=== PATIENT | male | born 1935 | race Caucasian/White ===

== ENCOUNTER 2025-03-21 06:33 | Outpatient (REF) | payer MEDICARE, SELFPAY ==
--- OUTSIDE RECORDS SUMMARY | 2025-03-21 06:42 | XMS_ITS | Clinical Summary ---
Author Organization [email or web address] Address [address] [facility] 7t [place] [address] Care Team Providers Care Solar Field Installation Crew Member Name Role Phone Unavailable Primary Care Provider Unavailabl e Immunizations Immunization Administration Dates Next Due Pfizer Covid-19 Vaccine 12+ 07/13/2023 Pfizer Covid-19 Vaccine 12+ Bivalent 03/08/2023 Social History Tobacco Use Types Packs/Day Years Used Date Smoking Tobacco: Never Assessed Sex and Gender Information Value Date Recorded Sex Assigned at Male 03/08/2023 12:03 PM EDT Legal Sex Male 12:02 PM EDT Gender Identity Male 03/08/2023 12:03 PM EDT Sexual Orientation Straight 03/08/2023 12 :03 PM EDT Plan of Treatment Health Maintenance Due Date Last Done Comments Depression Screening 1937 Lipid Panel 1937 SDOH Screening 1937 Alcohol/Substance Use Screening 1949 Tobacco Screening 1949 Zoster Vaccines (1 of 2) 1987 RSV Patients and Patients Aged 60 years or older (1 - 1-dose 75+ series) 2012 COVID-19 Vaccine ( season) 2024 07/13/2023, 03/08/2023, 09/04/2022, Additional history exists Influenza Vaccine (Season Ended) 2025 07/07/2023, 07/03/2022, 06/28/2021, Additional history exists DTaP/Tdap/Td Vaccines (3 - Td or Tdap) 07/06/2033 07/06/2023, 05/17/2012 Pneumococcal Vaccine: 50+ Years Completed 12/23/2015, 05/17/2012 HIB Vaccines Aged Out No longer eligi ble based on patient's age to complete this topic HPV Vaccines Aged Out No longer eligi ble based on patient's age to complete this topic Hepatitis A Vaccines Aged Out No long er eligible based on patient's age to complete this topic Hepatitis B Vaccines Aged Out No long er eligible based on patient's age to complete this topic IPV Vaccines Aged Out No longer eligi ble based on patient's age to complete this topic Meningococcal B Vaccine Aged Out No l onger eligible based on patient's age to complete this topic Meningococcal Vaccine Aged Out No lyn chidi eligible based on patient's age to complete this topic RSV under 20 months Aged Out No longe r eligible based on patient's age to complete this topic Rotavirus Vaccines Aged Out No longer eligible based on patient's age to complete this topic [facility]
[2025-03-21 06:48] LABS: MANUAL DIFF FLAG NO
[2025-03-21 07:15] LABS: Basophils Percent Auto 0.5 % (0-2); Eosinophils Absolute Auto 0.2 X10*3/uL (0.0-0.4); Eosinophils Percent Auto 2.3 % (0-4); Hematocrit 34.2 % (42.0-52.0); Hemoglobin 11.4 g/dl (14.0-18.0); Imm Gran Abs Auto 0.02 X10*3/uL (0.00-0.03); Imm Gran Pct Auto 0.3 % (0.0-0.4); Lymphocytes Absolute Auto 2.7 X10*3/uL (1.2-4.9); Lymphocytes Percent Auto 41.6 % (20-40); Mean Corpuscular HGB Conc 33.3 g/dl (31.0-36.0); Mean Corpuscular Hemoglobin 32.1 pg (27.0-33.0); Mean Corpuscular Volume 96.3 fL (80.0-98.0); Mean Platelet Volume 9.9 fL (9.4-12.4); Monocytes Absolute Auto 0.7 X10*3/uL (0.1-1.2); Monocytes Percent Auto 10.7 % (2-11); Neutrophils Absolute Auto 2.9 x10*3/uL (2.0-8.3); Neutrophils Percent Auto 44.6 % (45-73); Platelet Count 184 X10*3/uL (160-400); Red Blood Count 3.55 X10*6/uL (4.60-5.80); Red Cell Distribution Width 15.1 % (11.0-16.0); White Blood Count 6.4 X10*3/uL (4.8-10.8)
[2025-03-21 07:37] LABS: Alanine Aminotransferase 14 U/L (0-40); Albumin Level 3.6 g/dL (3.5-5.0); Alkaline Phosphatase 75 U/L (39-117); Anion Gap 12 (12-20); Aspartate Amino Transferase 21 U/L (5-37); Bilirubin Total 0.6 mg/dL (0.0-1.0); Blood Urea Nitrogen 32 mg/dL (9-16); Calcium 9.1 mg/dL (8.4-10.2); Carbon Dioxide 24 mmol/L (22-29); Chloride 107 mmol/L (96-108); Estimated Glomerular Filt Rate 58; Glucose Fasting 80 mg/dL (60-99); Potassium 4.6 mmol/L (3.3-5.1); Sodium 138 mmol/L (135-145); Total Protein 6.5 g/dL (6.5-8.0)
[2025-03-21 07:53] LABS: Thyroid Stimulating Hormone 1.17 uIU/mL (0.32-4.0); Vitamin D 25-OH Total 34.8 ng/mL (>30)
[2025-03-23 20:23] LABS: TS Negative Control Passed; TS Panel A 0; TS Panel B 3; TS Positive Control Passed; TSpotTB Negative (Negative)
== END 2025-03-21 06:34 | disposition home or self-care (01) ==
LOC: HO.HSH1N 06:33
PROVIDERS: Visit Provider Internal Medicine Interventional Cardiology
DX: Z02.2 Encounter for examination for admission to residential institution (principal)
CPT/HCPCS: 36415; 80053; 82306; 84443; 85025; 86481

== ENCOUNTER 2025-04-03 06:26 | Outpatient (REF) | payer MEDICARE, SELFPAY ==
[2025-04-03 06:32] LABS: MANUAL DIFF FLAG NO
[2025-04-03 07:00] LABS: Hematocrit 32.6 % (42.0-52.0); Hemoglobin 10.8 g/dl (14.0-18.0); Imm Gran Abs Auto 0.03 X10*3/uL (0.00-0.03); Imm Gran Pct Auto 0.4 % (0.0-0.4); Lymphocytes Absolute Auto 1.4 X10*3/uL (1.2-4.9); Mean Corpuscular HGB Conc 33.1 g/dl (31.0-36.0); Mean Corpuscular Hemoglobin 31.9 pg (27.0-33.0); Mean Corpuscular Volume 96.2 fL (80.0-98.0); NRBC Abs Auto 0.000 X10*3/uL (0.0-0.012); NRBC Pct Auto 0.0 /100WBC (0.0-0.2); Platelet Count 190 X10*3/uL (160-400); Red Blood Count 3.39 X10*6/uL (4.60-5.80); White Blood Count 8.0 X10*3/uL (4.8-10.8)
== END 2025-04-03 06:27 | disposition home or self-care (01) ==
LOC: HO.HSH 06:26
PROVIDERS: Visit Provider Internal Medicine Endocrinology, Diabetes & Metabolism
DX: D64.9 Anemia, unspecified (principal)
CPT/HCPCS: 36415; 85025

== ENCOUNTER 2025-04-05 06:54 | Outpatient (REF) | payer MEDICARE, SELFPAY ==
--- OUTSIDE RECORDS SUMMARY | 2025-04-05 06:59 | XMS_ITS | Clinical Summary ---
Author Organization [employer] Address [address] [facility] 7t [place] [address] Care Team Providers Care Skilled Trades Teacher Name Role Phone Unavailable Primary Care Provider [...] 03/08/2023, 09/04/2022, Additional history exists Influenza Vaccine (#1) 2025 , 07/03/2022, 06/28/2021, Additional history exists DTaP/Tdap/Td Vaccines [...] patient's age to complete this topic [facility]
[2025-04-05 07:52] LABS: Anion Gap 11 (12-20); Blood Urea Nitrogen 24 mg/dL (9-16); Calcium 8.6 mg/dL (8.4-10.2); Carbon Dioxide 23 mmol/L (22-29); Chloride 108 mmol/L (96-108); Estimated Glomerular Filt Rate 56; Potassium 4.6 mmol/L (3.3-5.1); Sodium 137 mmol/L (135-145)
[2025-04-05 08:25] LABS: Hematocrit 31.7 % (42.0-52.0); Hemoglobin 10.3 g/dl (14.0-18.0); Mean Corpuscular HGB Conc 32.5 g/dl (31.0-36.0); Mean Corpuscular Hemoglobin 31.8 pg (27.0-33.0); Mean Corpuscular Volume 97.8 fL (80.0-98.0); NRBC Abs Auto 0.000 X10*3/uL (0.0-0.012); NRBC Pct Auto 0.0 /100WBC (0.0-0.2); Platelet Count 183 X10*3/uL (160-400); Red Blood Count 3.24 X10*6/uL (4.60-5.80); White Blood Count 6.6 X10*3/uL (4.8-10.8)
[2025-04-06 06:54] LABS: OBS Int Ctl Valid YES; OBS1 NEGATIVE (NEGATIVE)
== END 2025-04-05 06:55 | disposition home or self-care (01) ==
LOC: HO.HSH1N 06:54
PROVIDERS: Nurse Practitioner; Visit Provider Internal Medicine Interventional Cardiology
DX: K62.5 Hemorrhage of anus and rectum (principal)
CPT/HCPCS: 36415; 80048; 82272; 85027

== ENCOUNTER 2025-04-08 16:55 | Outpatient (REF) | payer MEDICARE, SELFPAY ==
--- OUTSIDE RECORDS SUMMARY | 2025-04-08 17:09 | XMS_ITS | Clinical Summary ---
Author Organization [employer] Address [address] [facility] 7t [place] [address] Care Team Providers Care Clinical Product Manager Name Role Phone Unavailable Primary Care Provider [...] patient's age to complete this topic Insurance [facility]
[2025-04-08 17:41] LABS: Appearance Urine Clear; Glucose Urine UA Negative (Negative); PH 6.0 (5.0-9.0); Specific Gravity - Urine 1.025 (1.005-1.025)
== END 2025-04-08 16:56 | disposition home or self-care (01) ==
LOC: HO.HSH2S 16:55
PROVIDERS: Visit Provider Internal Medicine Interventional Cardiology
DX: R32 Unspecified urinary incontinence (principal)
CPT/HCPCS: 81003

== ENCOUNTER 2025-04-12 11:18 | Outpatient (REF) | payer MEDICARE, SELFPAY ==
--- OUTSIDE RECORDS SUMMARY | 2025-04-12 11:46 | XMS_ITS | Clinical Summary ---
Author Organization [employer] Address [address] [place] [address] Care Team Providers Care Television Host Name Role Phone Unavailable Primary Care Provider [...] 12 :03 PM EDT Plan of Treatment Upcoming Encounters Date Type Department Care Team (Late st Contact Info) Description 04/17/2025 8:00 AM EDT Office Visit [facility] [address] [place] [address] Fay Malone Health Maintenance Due Date Last Done Comments Dental Oral Exam 1937 Dental Prophylaxis 1937 Dental X-Ray: Bitewings 1937 Dental X-Ray: Full Mouth 1937 Depression Screening 1937 Lipid Panel 1937 SDOH Screening 1937 Alcohol/Substance Use Screening 1949 Tobacco Screening 1949 Zoster Vaccines (1 of 2) 1987 RSV Patients and Patients Aged 60 years or older (1 - 1-dose 75+ series) 2012 COVID-19 Vaccine ( season) 2025 07/21/2024, 06/28/2024, 07/13/2023, Additional history exists Influenza Vaccine (#1) 2025 , 06/28/2024, 07/07/2023, Additional history exists DTaP/Tdap/Td Vaccines (3 - [...] patient's age to complete this topic [facility]
--- OUTSIDE RECORDS SUMMARY | 2025-04-12 11:46 | XMS_ITS | Encounter Summary ---
Author Organization [facility] Address [address] [place] [address] Phone Care Team Providers Care Management Trainee Program Stores Name Role Phone Jimbo Quiroz MD Primary Care Provider Encounter Details Date Type Department Care Team (Late st Contact Info) Description 08/18/2023 Procedure Pass [facility], Ct Scan - [facility] [address] [place] [address] Social History Tobacco Use Types Packs/Day Years Used Date Smoking Tobacco: Former Pipe Q uit: 1975 Smokeless Tobacco: Never Comments:40 years ago - occa sional pipe in the 1970 Alcohol Use Standard Drinks/Week Comments Not Currently 0 (1 standard drink = 0.6 oz pur e alcohol) Hx ETOH sober 2019 Education Answer Date Recorded Are you interested in more education? Not on tony e 01/21/2023 Are you concerned about learning? Not on file 01/21/2023 No 01/21/2023 No 01/21/2023 Digital Access Answer Date Recorded No 02/19/2023 No 02/19/2023 Reliable internet access at home? Not on file 02/19/2023 Device with a working camera? Not on file Intimate Partner Violence Answer Date R ecorded Are you denied basic needs s uch as food, clothing, or medical care? No 08/18/2023 In the past 12 months have y ou been in a relationship with a person who hurts, threatens, or tries to control you? No 08/18/2023 Are you denied basic needs s uch as food, clothing, or medical care? No 08/18/2023 In the past 12 months have y ou been in a relationship with a person who hurts, threatens, or tries to control you? No 08/18/2023 Sex and Gender Information Value Date Recorded Sex Assigned at Male 08/18/2023 1:55 PM EST Legal Sex Male 10:14 PM EDT Gender Identity Male 08/18/2023 1:55 PM EST Sexual Orientation Not on file documented as of this encounter Functional Status * Calculated C-SSRS Risk Score (Lifetime/Recent) Answer Date of Assessment Author No Risk Indicated 08/18/2023 1:55 PM EST Elvia Neal RN * [place] Suicide Severity Rating Scale (Screener/Recent Self-Report) Question Answer Date of Assessment Author 1. Wish to be (Past 1 Month) No 023 1:55 PM Elvia Campbell RN 2. Non-Specific Active Suici zoey Thoughts (Past 1 Month) No 08/18/2023 1:55 PM Elvia Campbell RN 6. Suicidal Behavior (Lifetime) No 3 1:55 PM Elvia Campbell RN documented as of this encounter Plan of Treatment Not on file documented as of this encounter Visit Diagnoses Not on filedocumented in this encounter Care Teams Management Trainee Program Stores Relationship Specialty Start Date End Date Jimbo Quiroz MD [email or web address] PCP - General Family Medicine 05/02/20 documented as of this encounter Additional Source Comments The information contained in this document represents components of the legal health record. It is not the complete legal health record.[facility]
== END 2025-04-12 11:19 | disposition home or self-care (01) ==
LOC: HO.HSH2E 11:18
PROVIDERS: Visit Provider Internal Medicine Interventional Cardiology
DX: R05.9 Cough, unspecified (principal)
CPT/HCPCS: 87070; 87077; 87185; 87205

== ENCOUNTER 2025-04-17 06:42 | Outpatient (REF) | payer MEDICARE, SELFPAY ==
[2025-04-17 07:21] LABS: Iron 44 mcg/dL (45-160); Percent Iron Saturation 24 % (15-50); Total Iron Binding Capacity 181 mcg/dL (228-428); Unsaturated Iron Binding 137 ug/dL
[2025-04-17 07:34] LABS: Ferritin 154 ng/mL (20-250)
[2025-04-17 07:49] LABS: Folate 11.2 ng/mL (> or = 4.0); Vitamin B12 489 pg/mL (200-900)
== END 2025-04-17 06:43 | disposition home or self-care (01) ==
LOC: HO.HSH1N 06:42
PROVIDERS: Visit Provider Internal Medicine Interventional Cardiology
DX: D64.9 Anemia, unspecified (principal)
CPT/HCPCS: 36415; 82607; 82728; 82746; 83540

== ENCOUNTER 2025-04-26 07:19 | Outpatient (REF) | payer MEDICARE, SELFPAY ==
[2025-04-26 07:52] LABS: Uric Acid 5.9 mg/dL (3.4-7.0)
== END 2025-04-26 07:20 | disposition home or self-care (01) ==
LOC: HO.HSH1N 07:19
PROVIDERS: Visit Provider Internal Medicine Interventional Cardiology
DX: M10.9 Gout, unspecified (principal)
CPT/HCPCS: 36415; 84550

== ENCOUNTER 2025-06-12 06:50 | Outpatient (REF) | payer MEDICARE, SELFPAY ==
--- OUTSIDE RECORDS SUMMARY | 2025-06-12 06:54 | XMS_ITS | Encounter Summary ---
Author Organization [facility] Address [address] [place] [address] Phone Care Team Providers Care Power Checker Name Role Phone Jimbo Quiroz MD Primary Care Provider [phone] Encounter Details Date Type Department Care Team (Late st Contact Info) Description 05/15/2020 Procedure Pass [facility] Endoscopy Admitting Dept Virtual Department [address] [place] [address] Social History Tobacco Use Types Packs/Day Years Used Date Smoking Tobacco: Former Smokeless Tobacco: Never Comments:40 years ago Alcohol Use Standard Drinks/Week Comments Not Currently 0 (1 standard drink = 0.6 oz pur e alcohol) Hx ETOH Sex and Gender Information Value Date Recorded Sex Assigned at Male 08/18/2023 1:55 PM EST Legal Sex Male 10:14 PM EDT Gender Identity Male 08/18/2023 1:55 PM EST Sexual Orientation Not on file documented as of this encounter Plan of Treatment Not on file documented as of this encounter Visit Diagnoses Not on filedocumented in this encounter Care Teams Power Checker Relationship Specialty Start Date End Date Jimbo Quiroz MD [email or web address] PCP - General Family Medicine 05/02/20 documented as of this encounter Additional Source Comments The information contained in this document represents components of the legal health record. It is not the complete legal health record.[facility]
--- OUTSIDE RECORDS SUMMARY | 2025-06-12 06:54 | XMS_ITS | Encounter Summary ---
Author Organization [facility] Address [address] [place] [address] Phone Care Team Providers Care Beam Worker Name Role Phone Jimbo Quiroz MD Primary Care Provider [phone] Encounter Details Date Type Department Care Team (Late st Contact Info) Description 04/02/2022 Procedure Pass [facility] Endoscopy Admitting Dept Virtual Department [address] [place] [address] Social History Tobacco Use Types Packs/Day Years Used Date Smoking Tobacco: Former Smokeless Tobacco: Never Comments:40 years ago - [...] on filedocumented in this encounter Care Teams Beam Worker Relationship Specialty Start Date End Date Jimbo Quiroz MD [email or web address] PCP - General Family Medicine 05/02/20 documented as of this encounter Additional Source Comments The information contained in this document represents components of the legal health record. It is not the complete legal health record.[facility]
--- OUTSIDE RECORDS SUMMARY | 2025-06-12 06:54 | XMS_ITS | Encounter Summary ---
Author Organization [facility] Address [address] [place] [address] Phone Care Team Providers Care Die Maintenance Name Role Phone Unknown, Unknown Primary Care Provider Jimbo Chapman MD Primary Care Provider Encounter Details Date Type Department Care Team (Latest Contact Info) Description 07/07/2018 Transcribe Orders [facility] Specimen Processing [address] [place] [address] Matthew Booker, DMD [address] [place] [id number] Abscess (Primary Dx) Social History Tobacco Use Types Packs/Day Years Used Date Smoking Tobacco: Never Assessed Sex and Gender Information Value Date Recorded Sex Assigned at Male 08/18/2023 1:55 PM EST Legal Sex Male 10:14 PM EDT Gender Identity Male 08/18/2023 1:55 PM EST Sexual Orientation Not on file documented as of this encounter Plan of Treatment Not on file documented as of this encounter Results * Anaerobic culture (07/07/2018 4:45 PM EDT) Specimen Source/ Description ABSCESS LOWER RIGHT ABSCESS [facility] Special Requests None [facility] Culture/Test NO ANAEROBES ISOLATED [facility] Report Status 07/09/2018 FINAL [facility] Other (Abscess) 07/07/2018 4 :45 PM EDT 07/07/2018 5:34 PM EDT Matthew Booker DMD MICROBIOLOGY - GENERAL ORD ERABLES Final Result Performing Organization Address City/[facility] Co de Phone Number [address] [address] * (ABNORMAL) Wound culture/smear (07/07/2018 4:45 PM EDT) Specimen Source/ Description ABSCESS LOWER RIGHT ABSCESS [facility] Special Requests None [facility] GRAM STAIN Rare GRAM POSITIVE COCCI [facility] Culture/Test MIXED ORGANISMS RESEMBLING CUTANEOUS SUNNI(A) [facility] Report Status 07/09/2018 FINAL [facility] Other (Abscess) 07/07/2018 4 :45 PM EDT 07/07/2018 5:34 PM EDT Matthew Booker DMD MICROBIOLOGY - GENERAL ORD ERABLES Final Result Performing Organization Address [facility] Co de Phone Number [address] [address] documented in this encounter Visit Diagnoses Diagnosis Abscess- Primary Cellulitis and abscess of unspecified site documented in this encounter Care Teams Die Maintenance Relationship Specialty Start Date End Date Unknown, Unknown, MD PCP - General 07/07/18 05/01/20 Jimbo Quiroz MD [email or web address] PCP - General Family Medicine 05/02/20 documented as of this encounter Additional Source Comments The information contained in this document represents components of the legal health record. It is not the complete legal health record.[facility]
--- OUTSIDE RECORDS SUMMARY | 2025-06-12 06:54 | XMS_ITS | Encounter Summary ---
Author Organization [facility] Address [address] [place] [address] Phone Care Team Providers Care Pmp Name Role Phone Jimbo Quiroz MD Primary Care Provider Encounter Details Date Type Department Care Team (Late st Contact Info) Description 08/18/2023 Procedure Pass [facility], Ct Scan - [facility] [address] [place] [address] Social History Tobacco Use Types Packs/Day Years [...] 1:55 PM EST Elvia Neal RN * [place] Suicide Severity Rating Scale (Screener/Recent Self-Report) Question [...] on filedocumented in this encounter Care Teams Pmp Relationship Specialty Start Date End Date Jimbo Quiroz MD [email or web address] PCP - General Family Medicine 05/02/20 documented as of this encounter Additional Source Comments The information contained in this document represents components of the legal health record. It is not the complete legal health record.[facility]
--- OUTSIDE RECORDS SUMMARY | 2025-06-12 06:54 | XMS_ITS | Encounter Summary ---
Author Organization [facility] Address [address] [place] [address] Phone Care Team Providers Care Quick Technician Name Role Phone Jimbo Quiroz MD Primary Care Provider Encounter Details Date Type Department Care Team (Late st Contact Info) Description 12/22/2024 Oph Exam [facility] [address] [place] [address] Brian Catalan MD, PhD [address] [place] [address] [email or web address] Social History Tobacco Use Types Packs/Day Years Used Date Smoking Tobacco: Former Pipe Q uit: 1974 Smokeless Tobacco: Never Comments:40 years ago - [...] as food, clothing, or medical care? No 12/22/2024 In the past 12 months have y ou been in a relationship with a person who hurts, threatens, or tries to control you? No 12/22/2024 Are you denied basic needs s uch as food, clothing, or medical care? No 12/22/2024 In the past 12 months have y ou been in a relationship with a person who hurts, threatens, or tries to control you? No 12/22/2024 Sex and Gender Information Value Date Recorded Sex Assigned at Male 08/18/2023 1:55 PM EST Legal Sex Male 10:14 PM EDT Gender Identity Male 08/18/2023 1:55 PM EST Sexual Orientation Not on file documented as of this encounter Functional Status * Calculated C-SSRS Risk Score (Lifetime/Recent) Answer Date of Assessment Author No Risk Indicated 12/22/2024 9:52 PM EDT Nevaeh Umanzor RN * [place] Suicide Severity Rating Scale (Screener/Recent Self-Report) Question Answer Date of Assessment Author 1. Wish to be (Past 1 Month) No 025 9:52 PM EDT Nevaeh Umanzor RN 2. Non-Specific Active Suici zoey Thoughts (Past 1 Month) No 12/22/2024 9:52 PM EDT Brittanie Umanzor RN 6. Suicidal Behavior (Lifetime) No 9:52 PM EDT Nevaeh Umanzor RN documented as of this encounter Plan of Treatment Not on file documented as of this encounter Visit Diagnoses Not on filedocumented in this encounter Care Teams Quick Technician Relationship Specialty Start Date End Date Jimbo Quiroz MD [email or web address] PCP - General Family Medicine 05/02/20 documented as of this encounter Additional Source Comments The information contained in this document represents components of the legal health record. It is not the complete legal health record.[facility]
--- OUTSIDE RECORDS SUMMARY | 2025-06-12 06:54 | XMS_ITS | Clinical Summary ---
Author Organization [employer] Address [address] [place] [address] [address] [place] [address] Care Team Providers Care Condenser Operator Name Role Phone Unavailable Primary Care Provider Unavailabl e Allergies Active Allergy Reactions Criticality Noted Date Comments Lisinopril 04/17/2025 Medications LORazepam (Ativan) 0.5 MG tablet Take 0.5 mg by mouth in the morning and 0.5 mg in the evening. Active nystatin (Mycostatin) 216193 UNIT/GM powder Apply topically 2 times daily. Active QUEtiapine (SEROquel) 25 MG tablet Take 25 mg by mouth in the morning and 25 mg in the evening. Active polyethylene glycol, PEG, 3350 (Glycolax) 17 GM/SCOOP powder Take 17 g by mouth Once per day. Active lactulose (Chronulac) 10 GM/15ML solution Take 10 g by mouth in the morning. Active levothyroxine (Tirosint) 112 MCG capsule Take 12.5 mcg by mouth before breakfast. Active Melatonin 3 MG tablet dispersible Take 3 mg by mouth at bedtime. Active docusate sodium (Colace) 100 MG capsule Take 100 mg by mouth Once per day. Active acetaminophen (Tylenol) 325 MG tablet Take 650 mg by mouth every 4 (four) hours if needed for mild pain. Active cholecalciferol (Vitamin D3) 25 MCG (1000 UT) tablet Take by mouth Once per day. Active omeprazole (PriLOSEC) [address] capsule Take 20 mg by mouth before breakfast. Do not crush or chew. Active polyvinyl alcohol-povidone PF (HypoTears) 1.4-0.6 % ophthalmic solution Administer 1 drop into both eyes in the morning. Active traZODone (Desyrel) 50 MG tablet Take 50 mg by mouth at bedtime. Active Active Problems No known active problems Encounters Date Type Department Care Team Description 05/29/2025 1:45 PM EDT Office Visit [facility] [address] [place] [address] Vernon Manuel DMD 04/17/2025 8:00 AM EDT Office Visit [facility] [address] [place] [address] Fay Malone from Last 3 Months Immunizations Immunization Administration Dates Next Due Pfizer [...] 2025 , 06/28/2024, 07/07/2023, Additional history exists Dental Prophylaxis 10/19/2025 04/17/2025 Dental Oral Exam 11/27/2025 05/29/2025 Dental X-Ray: Bitewings 05/30/2026 05/29/2025 Dental X-Ray: Full Mouth 05/30/2028 05/29/2025 DTaP/Tdap/Td Vaccines (3 - Td or Tdap) [...] on patient's age to complete this topic Procedures Procedure Name Priority Date/Time Associated Diagnosis Comments BEHAVIOR MANAGEMENT Routine 05/29/2025 1 :45 PM EDT INTRAORAL - COMPLETE SERIES OF RADIOGRAPHIC IMAGES Routine 05/29/2025 1:45 PM EDT COMPREHENSIVE ORAL EVALUATION - NEW OR ESTABLISHED PATIENT Routine 05/29/2025 1:45 PM EDT 31 MO COMPOSITE FILLING Routine 05/29/20 25 12:00 AM EDT 30 AMALGAM FILLING Routine 12:00 AM EDT 29 O COMPOSITE FILLING Routine 12:00 AM EDT 28 O COMPOSITE FILLING Routine 12:00 AM EDT 21 O COMPOSITE FILLING Routine 12:00 AM EDT 20 MOD AMALGAM FILLING Routine 5 12:00 AM EDT 19 PFM CROWN Routine 05/29/2025 12:00 AM EDT 15 MO AMALGAM FILLING Routine 05/29/2025 12:00 AM EDT 14 MOD AMALGAM FILLING Routine 12:00 AM EDT 5 DO AMALGAM FILLING Routine 05/29/2025 12:00 AM EDT 3 MOD AMALGAM FILLING Routine 05/29/2025 12:00 AM EDT 2 PFM CROWN Routine 05/29/2025 12:00 AM EDT 19 ROOT CANAL Routine 05/29/2025 12:00 AM EDT TOPICAL APPLICATION OF FLUORIDE VARNISH Routine 04/17/2025 8:00 AM EDT PROPHYLAXIS - ADULT Routine 04/17/2025 8 :00 AM EDT BEHAVIOR MANAGEMENT Routine 04/17/2025 8 :00 AM EDT INTRAORAL - PERIAPICAL EACH ADDITIONAL RADIOGRAPHIC IMAGE Routine 04/17/2025 8:00 AM EDT INTRAORAL - PERIAPICAL FIRST RADIOGRAPHIC IMAGE Routine 04/17/2025 8:00 AM EDT from Last 3 Months [facility] Address: [facility] [address] [place] [address]
--- OUTSIDE RECORDS SUMMARY | 2025-06-12 06:54 | XMS_ITS | Encounter Summary ---
Author Organization [facility] Address [address] [place] [address] Phone Care Team Providers Care Restaurant Service Manager Name Role Phone Jimbo Quiroz MD Primary Care Provider Encounter Details Date Type Department Care Team (Late st Contact Info) Description 12/22/2024 Procedure Pass [facility] - [facility] Main [place] [address] [facility] [place] [address] Social History Tobacco Use Types Packs/Day Years [...] 9:52 PM EDT Nevaeh Umanzor RN * [place] Suicide Severity Rating Scale (Screener/Recent Self-Report) Question Answer Date of Assessment Author 1. Wish to be (Past 1 Month) No 025 9:52 PM EDT Nevaeh Umanzor RN 2. Non-Specific Active Suici zoey Thoughts (Past 1 Month) No 12/22/2024 9:52 PM EDT Brittanie Umanzor RN 6. Suicidal Behavior (Lifetime) No 5 9:52 PM EDT Nevaeh Umanzor RN documented as of this encounter Plan of Treatment Not on file documented as of this encounter Visit Diagnoses Not on filedocumented in this encounter Care Teams Restaurant Service Manager Relationship Specialty Start Date End Date Jimbo Quiroz MD [email or web address] PCP - General Family Medicine 05/02/20 documented as of this encounter Additional Source Comments The information contained in this document represents components of the legal health record. It is not the complete legal health record.[facility]
--- OUTSIDE RECORDS SUMMARY | 2025-06-12 06:54 | XMS_ITS | Clinical Summary ---
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 Active omeprazole (PRILOSEC) 20 MG capsule Take 20 mg by mouth daily. 09/22/2021 Active therapeutic multivitamin tablet Take 1 tablet by mouth daily. Active levothyroxine (SYNTHROID, LEVOTHROID) 125 MCG tablet Take 125 mcg by mouth daily. 02/20/2022 Active amLODIPine (NORVASC) 5 MG tablet Take 1 tablet by mouth every morning. 06/27/2023 Active ofloxacin (FLOXIN) 0.3 % otic solution 5 drops by Each Ear route daily. Active erythromycin (ROMYCIN) ophthalmic ointment Place 0.5 inches into the right eye 3 (three) times a day. 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 They are partially reducible and have no pain associated with them or obstructive symptoms. The patient's daughter brought him in as they have grown in size and she was concerned. The patient has no indication for any surgical intervention at this time especially with his worsening dementia. I have recommended more supportive underwear like boxer briefs. The patient should return to the office if he starts to have any abdominal pain or obstructive symptoms. Immunizations Immunization Administration Dates Next Due COVID-19 (Pre-07/18) Pfizer Vaccine, mRNA, PF 07/15/2021,10/26/2020,10/05/2020 INFLUENZA, SPLIT VIRUS, TRIV ALENT W/ PRESERVATIVE IM 05/17/2012,07/05/2011,08/28/2010 Influenza High-Dose Quadriva lent Preservative Free IM 06/26/2020 Influenza High-Dose Trivalen t Preservative Free IM 06/29/2019 Pneumococcal polysaccharide PPSV23 05/17/2012 Tdap 05/17/2012 Family History Medical History Relation Comments Heart attack Father Hypertension Father Rheumatic heart disease Father Heart disease Mother Hypertension Mother Thyroid disease Mother Relation Status Comments Father Mother Social History Tobacco Use Types Packs/Day Years [...] PM EST Sexual Orientation Not on file Last Filed Vital Signs Vital Sign Reading Time Taken Comments Blood Pressure 125/80 12/22/2024 9:49 PM EDT Pulse 81 12/22/2024 9:49 PM EDT Temperature 37.1 C (98.8 F) 12/22/2024 9:49 PM EDT Respiratory Rate 18 12/22/2024 9:49 PM EDT Oxygen Saturation 94% 12/22/2024 9:49 PM EDT Inhaled Oxygen Concentration - - Weight 74.8 kg (165 lb) 12/22/2024 9:49 PM EDT Height 172.7 cm (5' 8 ) 12/22/2024 9:49 PM EDT Body Mass Index 25.09 12/22/2024 9:49 PM EDT Plan of Treatment Health Maintenance Due Date Last Done Comments TSH LEVEL 1937 DEPRESSION SCREENING 1949 ZOSTER VACCINES (1 of 2) 1987 RSV VACCINE (1 - 1-dose 75+ series) 2012 PNEUMOCOCCAL VACCINES (50+ years) (2 of 2 - PCV) 05/17/2013 05/17/2012 Adult Td,Tdap Booster 05/17/2022 05/17/2012 INFLUENZA VACCINE (#1) 2025 , 06/29/2019, 05/17/2012, Additional history exists COVID-19 VACCINE ( season) 2025 07/15/2021, 10/26/2020, 10/05/2020 HEPATITIS A VACCINES Aged Out No long er eligible based on patient's age to complete this topic HIB VACCINES Aged Out No longer eligi ble based on patient's age to complete this topic MENINGOCOCCAL VACCINES (ACWY) Aged Out No longer eligible based on patient's age to complete this topic MENINGOCOCCAL VACCINES (B) Aged Out N o longer eligible based on patient's age to complete this topic Medical Devices Implanted Type Area Mobile Lounge Driver Or Operator Device Identifier Shelf Expiration Date Model / Serial / Lot 04/02/2015 Implanted:2014 (Quantity not on file) Description:Left hip Insurance [place] H[place] BLUE RE[place]ACEMENT MEDICARE PART A & B [facility] MEDICARE HMO BLUE REPLACEMENT MEDICARE PART A & B [facility] MEDICARE PART A & B MEDICARE PART A & B [facility] MEDICARE HMO BLUE REPLACEMENT MEDICARE PART A & B [facility] MEDICARE HMO BLUE REPLACEMENT MEDICARE PART A & B [place] BL[place] RE[place]AC[place] MEDICARE PART A & B [facility] MEDICARE HMO BLUE REPLACEMENT MEDICARE PART A & B [facility] MEDICARE PART A & B 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 It is not the complete legal health record.[facility]
[2025-06-12 07:17] LABS: Hematocrit 35.9 % (42.0-52.0); Hemoglobin 11.9 g/dl (14.0-18.0); Imm Gran Abs Auto 0.01 X10*3/uL (0.00-0.03); Imm Gran Pct Auto 0.2 % (0.0-0.4); Lymphocytes Absolute Auto 2.5 X10*3/uL (1.2-4.9); MANUAL DIFF FLAG NO; Mean Corpuscular HGB Conc 33.1 g/dl (31.0-36.0); Mean Corpuscular Hemoglobin 30.8 pg (27.0-33.0); Mean Corpuscular Volume 93.0 fL (80.0-98.0); NRBC Abs Auto 0.000 X10*3/uL (0.0-0.012); NRBC Pct Auto 0.0 /100WBC (0.0-0.2); Platelet Count 199 X10*3/uL (160-400); Red Blood Count 3.86 X10*6/uL (4.60-5.80); White Blood Count 5.9 X10*3/uL (4.8-10.8)
== END 2025-06-12 06:51 | disposition home or self-care (01) ==
LOC: HO.HSH1N 06:50
PROVIDERS: Visit Provider Internal Medicine Endocrinology, Diabetes & Metabolism
DX: K92.1 Melena (principal)
CPT/HCPCS: 36415; 85025